=== PATIENT | male | born 1960 ===

== ENCOUNTER 2020-06-18 11:08 | Inpatient (IN) ==
[~2020-06-18 11:08] MED LIST: Buffered Lidocaine 1% SYRIN 1 ml INTRADERM ONE; Famotidine IV 10 MG/ML 2 ml VIAL (20 mg) IV ONE; Lactated Ringers 1000 ml BAG 1,000 ML IV SCH
[2020-06-18] MEDS ORDERED: Buffered Lidocaine 1% SYRIN 1 ml INTRADERM ONE (11:24)
[2020-06-18] MEDS ORDERED: ceFAZolin 2 GM PREMIX 2 GM/50 ML BAG ONE (11:24)
[2020-06-18] MEDS ORDERED: Famotidine IV 10 MG/ML 2 ml VIAL (20 mg) ONE (11:24)
[2020-06-18] MEDS ORDERED: fentaNYL 100 mcg/2 ml 50 MCG/ML VIAL ONE (12:27)
[2020-06-18] MEDS ORDERED: Midazolam 5 mg/5 ml VIAL 1 mg/ml 5 ml VIAL (5 mg) ONE (12:27)
[2020-06-18] MEDS ORDERED: Ondansetron 4 mg VIAL 2 MG/ML 2 ml VIAL ONE ×2 (12:27→19:25)
[2020-06-18] MEDS ORDERED: Lidocaine 2% PF 5 ML VIAL ONE (12:27)
[2020-06-18] MEDS ORDERED: Dexamethasone IV 4 MG/ML VIAL 1 ml VIAL ONE (12:27)
[2020-06-18] MEDS ORDERED: Propofol 10 MG/ML 20 ML BTL ONE (12:27)
[2020-06-18] MEDS ORDERED: Ketamine HCL 50 mg/ml 10 ml VIAL (500 MG) ONE (12:27)
[2020-06-18] MEDS ORDERED: ROPIVACAINE 5 MG/ML 30 ML BTL (0.5%) ONE (13:28)
[2020-06-18] MEDS ORDERED: Bupivacaine 0.5% SDV PF 30ML VIAL ONE (14:39)
[2020-06-18] MEDS ORDERED: Midazolam 2 mg/2 ml VIAL 1 mg/ml 2 ml VIAL (2 mg) ONE (14:50)
[2020-06-18] MEDS ORDERED: Naloxone 0.4 mg VIAL 0.4 mg/ml 1 ml VIAL IV PRN ×2 (15:53→19:57)
[2020-06-18] MEDS ORDERED: fentaNYL 100 mcg/2 ml 50 MCG/ML VIAL IV PRN ×2 (15:53→19:55)
[2020-06-18] MEDS ORDERED: Ondansetron 4 mg VIAL 2 MG/ML 2 ml VIAL IV PRN ×3 (15:53→19:55)
[2020-06-18] MEDS ORDERED: Lactulose 30 ml UDC PO PRN ×2 (17:06→19:55)
[2020-06-18] MEDS ORDERED: diPHENhydraMINE IV 50 MG/ML 1 ml VIAL (BENADRYL) IV PRN ×2 (17:06→19:55)
[2020-06-18] MEDS ORDERED: Magnesium Hydroxide LIQ 30 ML UDC PO PRN ×2 (17:06→19:55)
[2020-06-18] MEDS ORDERED: Ondansetron ODT 4 mg TAB 4 MG TAB PO PRN ×2 (17:06→19:55)
[2020-06-18] MEDS ORDERED: Morphine 2 MG/ML SYRINGE IV PRN ×2 (17:06→19:55)
[2020-06-18] MEDS ORDERED: diPHENhydraMINE 25 mg TAB PO PRN ×2 (17:06→19:55)
[2020-06-18] MEDS ORDERED: SILDENAFIL 50 MG PO PRN ×2 (17:12→19:56)
[2020-06-18] MEDS ORDERED: HYDROcodone/ACETAMIN 5/325 mg TAB PO PRN ×2 (17:15)
[2020-06-18] MEDS ORDERED: ceFAZolin 1 GM ADVAN 1 GM in NS 0.9% 50 ML 50 ML IVPB SCH (18:00)
[2020-06-18] MEDS ORDERED: FENOFIBRATE MICRONIZED 67 MG PO SCH (18:00)
[2020-06-18] MEDS ORDERED: Lactated Ringers 1000 ml BAG 1,000 ML IV SCH (18:00)
[2020-06-18] MEDS ORDERED: HYDROcodone/ACETAMIN 5/325 mg TAB ONE (19:20)
[2020-06-18] MEDS ORDERED: Albuterol HFA INHALER 8 gm MDI INH PRN (20:28)
[2020-06-18] MEDS: Lactated Ringers 1000 ml BAG 1,000 ML IV SCH (20:33)
[2020-06-18] MEDS ORDERED: Magnesium Hydroxide LIQ 30 ML UDC PO SCH (21:00)
[2020-06-18] MEDS ORDERED: OMEPRAZOLE 20 MG PO SCH (21:00)
[2020-06-18] MEDS: Magnesium Hydroxide LIQ 30 ML UDC PO SCH (21:30)
[2020-06-18] MEDS: HYDROcodone/ACETAMIN 5/325 mg TAB PO PRN (23:21)
[2020-06-18] MEDS: ceFAZolin 1 GM ADVAN 1 GM in NS 0.9% 50 ML 50 ML IVPB SCH (23:21)
[2020-06-19] MEDS: HYDROcodone/ACETAMIN 5/325 mg TAB PO PRN ×2 (04:15→09:59)
[2020-06-19] MEDS: Lactated Ringers 1000 ml BAG 1,000 ML IV SCH (06:59)
[2020-06-19] MEDS: ceFAZolin 1 GM ADVAN 1 GM in NS 0.9% 50 ML 50 ML IVPB SCH (06:59)
[2020-06-19 07:20] LABS: Hematocrit 36 % (42-52); Hemoglobin 12.3 g/dL (14.0-18.0); Mean Platelet Volume 8.8 fL (7.4-10.4); Platelet Count 230 10^3/uL (150-450)
[2020-06-19 07:36] LABS: Calcium 8.8 mg/dL (8.6-10.3); EGFR African American 40.4 (>60); EGFR Non-African American 33.4 (>60); Potassium 4.9 mmol/L (3.5-5.0)
[2020-06-19] MEDS ORDERED: Vitamin THERAPEUTIC TAB PO SCH ×2 (09:00)
[2020-06-19] MEDS: Magnesium Hydroxide LIQ 30 ML UDC PO SCH (09:59)
[2020-06-19 11:17] VITALS: BP 127/81
== END 2020-06-19 13:50 | disposition home or self-care (01) | DRG 301 ==
LOC: AA 11:08 → UNDODISIN 19:30 → SSU 20:22
PROVIDERS: ADMIT Orthopaedic Surgery Adult Reconstructive Orthopaedic Surgery; ATTEND Orthopaedic Surgery Adult Reconstructive Orthopaedic Surgery